=== PATIENT | female | born 2000 | race African-American/Black ===

== ENCOUNTER 2019-02-15 05:59 | Emergency (ER) | payer OTHER, MEDICAID, SELFPAY ==
[2019-02-15 06:06] VITALS: BP 140/72; PULSE 113; RESP 19; O2SAT 97; BMI 32.4
--- NOTE | 2019-02-15 06:16 | DI.US.S_ITS ---
PROCEDURE: US ABDOMEN LIMITED INDICATIONS: RUQ pain eval for GB pathology TECHNIQUE: Real-time scanning was performed of the abdominal and retroperitoneal organs, with image documentation. COMPARISON: None. FINDINGS: Liver: Liver is normal in size and homogeneous in echotexture. Gallbladder: Sludge material is seen in the dependent portion of gallbladder lumen. No gallbladder wall thickening or pericholecystic fluid. No sonographic Catalan's sign. Biliary ducts: Intrahepatic bile ducts are non-dilated. Extrahepatic bile duct caliber measures 3 mm. Normal is 6-7 mm or less in diameter, or 10 mm or less post-cholecystectomy. Pancreas: Visualized portions of the pancreas are sonographically normal. Kidneys: Right kidney measures 12.4 cm in length. Mild prominence of right renal collecting system and right renal pelvis is seen. No discrete obstructing renal stone is seen. No gross solid appearing renal lesion. Miscellaneous: No free abdominal fluid. Examination of the urinary bladder shows presence of bilateral urinary jets. Intrauterine gestation is noted with heart rate measures 147 beats per minute. IMPRESSION: 1. Suggestion of sludge material within gallbladder lumen. No evidence of acute cholecystitis. No biliary ductal dilatation. 2. Mild right-sided hydronephrosis likely related to . Dictated by: Home Cook M.D. on 02/15/2019 at 8:36 Approved by: Home Cook M.D. on 02/15/2019 at 8:39
--- NOTE | 2019-02-15 06:19 | ED_ITS ---
HPI - Chest Pain <DO Elijah Cano Last Filed: 02/15/19 18:01> General Chief Complaint: Chest Pain Stated Complaint: chest pain/rt abd pain/23 weeks Time Seen by Provider: 02/15/19 06:01 Source: patient Mode of arrival: Ambulatory Limitations: no limitations History of Present Illness HPI narrative: Patient is a at 23 weeks here for evaluation of bilateral chest discomfort and right upper quadrant abdominal pain. She states the right upper quadrant abdominal pain has been going on since last evening the chest pain has been going on for the past several hours. Has had some abdominal pain in this prior to this and has been evaluated for appendicitis however she feels like this pain is unrelated to that. No nausea vomiting. No fevers. No coughing. States that the chest pain is sharp and it is bilateral. Worse with deep breaths. Not worse with palpation or movement. Related Data Allergies Allergy/AdvReac Type Severity Reaction Status Date / Time No Known Drug Allergies Allergy Verified 02/15/19 06:06 Review of Systems <DO Elijah Cano Last Filed: 02/15/19 18:01> Constitutional Constitutional: Denies chills, Denies fever(s), Denies headache(s) and Denies malaise ENT Ears, Nose, Mouth, and Throat: Denies headache(s) Cardiovascular Cardiovascular: Reports chest pain, Denies irregular heart rhythm and Denies dyspnea Respiratory Respiratory: Reports pain on inspiration and Denies dyspnea Gastrointestinal Gastrointestinal: Reports abdominal pain, Denies change in stool character, Denies nausea and Denies vomiting Genitourinary Genitourinary: Denies dysuria Musculoskeletal Musculoskeletal: Denies myalgias and Denies arthralgias Integumentary/Breasts Skin/Breast: Denies lesions and Denies rash Neurologic Neurologic: Denies behavioral changes and Denies headache(s) Psychiatric Psychiatric: Denies behavioral changes Hematologic/Lymphatic Hematologic/Lymphatic: Denies easy bleeding and Denies easy bruising Patient History <DO Elijah Cano Filed: 02/15/19 18:01> Medical History Healthy adult (Acute) Social History Smoking Status: Never smoker Substance Use Type: does not use Exam <DO Elijah Cano Filed: 02/15/19 18:01> Initial Vital Signs Initial Vital Signs: Vital Signs Pulse Rate 113 H 02/15/19 06:06 Respiratory Rate 19 02/15/19 06:06 Blood Pressure 140/72 02/15/19 06:06 Pulse Oximetry 97 02/15/19 06:06 Const General: cooperative and comfortable Orientation: alert, awake and oriented x3 HENMT Head: normal to inspection and normocephalic Resp Effort & Inspection: normal respiratory effort Auscultation: clear to auscultation bilaterally Cardio Rate: regular rate Rhythm: regular rhythm Pulses: radial pulses present GI Inspection: non-distended Palpation: soft, No firm and tender (Right upper quadrant) Back/Spine/Pelvis Back: No CVA tenderness Skin Lesions: no lesions Rashes: no rashes Neuro General: alert, awake and oriented x3 Extrem General: normal to inspection and capillary refill normal <Desi Cates DO - Last Filed: 02/15/19 07:59> Initial Vital Signs Initial Vital Signs: Vital Signs Pulse Rate 113 H 02/15/19 06:06 Respiratory Rate 19 02/15/19 06:06 Blood Pressure 140/72 02/15/19 06:06 Pulse Oximetry 97 02/15/19 06:06 Course <Vickey LeivaDO jennifer - Last Filed: 02/15/19 18:01> Orders Ordered: ED Orders 02/15/19 06:08 EKG-12 Lead Stat 02/15/19 06:15 Complete Blood Count AUTO DIFF Stat Comprehensive Metabolic Panel Stat Lipase Stat Troponin I Stat 02/15/19 06:16 US abdomen limited Stat Vital Signs Vital signs: Vital Signs - 8 hr 02/15/19 06:06 02/15/19 07:32 02/15/19 07:56 Temperature 97.5 F L Pulse Rate 113 H 67 Respiratory Rate 19 18 Blood Pressure 140/72 Blood Pressure [Right Arm] 109/56 L Pulse Oximetry 97 99 <Desi Cates DO - Last Filed: 02/15/19 07:59> Orders Ordered: ED Orders 02/15/19 06:08 EKG-12 Lead Stat 02/15/19 06:15 Complete Blood Count AUTO DIFF Stat Comprehensive Metabolic Panel Stat Lipase Stat Troponin I Stat 02/15/19 06:16 US abdomen limited Stat Vital Signs Vital signs: Vital Signs - 8 hr 02/15/19 06:06 02/15/19 07:32 02/15/19 07:56 Temperature 97.5 F L Pulse Rate 113 H 67 Respiratory Rate 19 18 Blood Pressure 140/72 Blood Pressure [Right Arm] 109/56 L Pulse Oximetry 97 99 MDM - Chest Pain <Vickey MedinaDO - Last Filed: 02/15/19 18:01> Lab Data Attestation: I reviewed the patient's lab results. Result diagrams: 02/15/19 06:15 02/15/19 06:15 Labs: Lab Results 02/15/19 02/15/19 Range/Units 06:15 06:15 WBC 13.0 H (4.5-11.0) X10^3/uL RBC 4.28 (4.0-5.2) X10^6/uL Hgb 9.3 L (12.0-16.0) g/dL Hct 28.0 L (36-46) % MCV 65.5 L (80-100) fL MCH 21.6 L (26-34) PG MCHC 33.0 (30-36) % RDW 17.0 H (11.6-14.8) % Plt Count 248 (150-400) X10^3/uL Neut % (Auto) 72.7 (50-75) % Lymph % (Auto) 19.5 L (25-40) % [place] % (Auto) 6.4 (3-14) % Eos % (Auto) 1.1 L (2-4) % Baso % (Auto) 0.3 (0-2) % Neut # (Auto) 9400 H (6738-3782) /uL Lymph # (Auto) 2500 (0303-8593) /uL [facility] # (Auto) 800 (0-900) /uL Eos # (Auto) 100 (0-450) /uL Baso # (Auto) 0 (0-100) /uL RBC Morphology Not Reportable Anisocytosis 1+ H Sodium 135 L (137-145) mmol/L Potassium 3.7 (3.4-5.1) mmol/L Chloride 105 (98-107) mmol/L Carbon Dioxide 23 (22-32) mmol/L BUN 6 L (7-17) mg/dL Creatinine 0.60 (0.52-1.04) mg/dL Estimated GFR > 60.0 (>60) mL/min BUN/Creatinine Ratio 10.0 (6-22) Glucose 94 (70-100) mg/dL Calcium 9.2 (8.4-10.2) mg/dL Total Bilirubin 0.2 (0.2-1.3) mg/dL AST 18 (14-36) IU/L ALT 9 (<35) IU/L Alkaline Phosphatase 73 (38-126) U/L Troponin I < 0.012 (0.01-0.034) ng/mL Total Protein 6.9 (6.3-8.2) g/dL Albumin 3.8 (3.5-5.0) g/dL Globulin 3.1 (1.7-4.1) g/dL Albumin/Globulin Ratio 1.2 (1.0-2.8) Lipase 113 (23-300) U/L Urine Dip Bedside Urine Glucose Negative Bedside Urine Bilirubin - Negative Bedside Urine Ketone - Negative Urine Specific [place] 1.010 Bedside Urine Occult Blood - Negative Bedside Urine pH 6.0 Bedside Urine Protein - Negative Bedside Urine Urobilinogen - Negative Bedside Urine Nitrite - Negative Bedside Urine Leukocytes - Negative Esterase ECG Data Attestation: I personally reviewed and interpreted this ECG as follows: Prior ECG tracings: not available for review Interpretation: Sinus rhythm Ventricular rate 87 Normal axis Normal QRS Normal QTC No ST T wave changes MDM Narrative Medical decision making narrative: Triage vital signs as the patient tachycardic however EKG and monitor after that has her heart rate in the 80s. Patient's ri ght upper quadrant abdominal pain is somewhat concerned that with gallbladder disease. Labs ordered. Ultrasound was ordered. She has had multiple visits to ERs during this for abdominal pain. I do have low suspicion for pulmonary embolism. I also have low suspicion for pneumonia Will hold on any radiologic studies for now. Patient does have a leukocytosis however she states that she has had leukocytosis prior in this . States that 2 weeks ago she was treated with antibiotics by her primary doctor without a definitive source of the leukocytosis. She has no vaginal bleeding. Does have dysuria symptoms. Labs pending. Care turned over to day provider change of shift follow up on labs, radiologic studies and ultimate disposition for <Desi Ctaes DO - Last Filed: 02/15/19 07:59> Lab Data Attestation: I reviewed the patient's lab results. Labs: Lab Results 02/15/19 02/15/19 Range/Units 06:15 06:15 WBC 13.0 H (4.5-11.0) X10^3/uL RBC 4.28 (4.0-5.2) X10^6/uL Hgb 9.3 L (12.0-16.0) g/dL Hct 28.0 L (36-46) % MCV 65.5 L (80-100) fL MCH 21.6 L (26-34) PG MCHC 33.0 (30-36) % RDW 17.0 H (11.6-14.8) % Plt Count 248 (150-400) X10^3/uL Neut % (Auto) 72.7 (50-75) % Lymph % (Auto) 19.5 L (25-40) % [facility] % (Auto) 6.4 (3-14) % Eos % (Auto) 1.1 L (2-4) % Baso % (Auto) 0.3 (0-2) % Neut # (Auto) 9400 H (9379-1308) /uL Lymph # (Auto) 2500 (1123-8368) /uL [facility] # (Auto) 800 (0-900) /uL Eos # (Auto) 100 (0-450) /uL Baso # (Auto) 0 (0-100) /uL RBC Morphology Not Reportable Anisocytosis 1+ H Sodium 135 L (137-145) mmol/L Potassium 3.7 (3.4-5.1) mmol/L Chloride 105 (98-107) mmol/L Carbon Dioxide 23 (22-32) mmol/L BUN 6 L (7-17) mg/dL Creatinine 0.60 (0.52-1.04) mg/dL Estimated GFR > 60.0 (>60) mL/min BUN/Creatinine Ratio 10.0 (6-22) Glucose 94 (70-100) mg/dL Calcium 9.2 (8.4-10.2) mg/dL Total Bilirubin 0.2 (0.2-1.3) mg/dL AST 18 (14-36) IU/L ALT 9 (<35) IU/L Alkaline Phosphatase 73 (38-126) U/L Troponin I < 0.012 (0.01-0.034) ng/mL Total Protein 6.9 (6.3-8.2) g/dL Albumin 3.8 (3.5-5.0) g/dL Globulin 3.1 (1.7-4.1) g/dL Albumin/Globulin Ratio 1.2 (1.0-2.8) Lipase 113 (23-300) U/L Urine Dip Bedside Urine Glucose Negative Bedside Urine Bilirubin - Negative Bedside Urine Ketone - Negative Urine Specific [place] 1.010 Bedside Urine Occult Blood - Negative Bedside Urine pH 6.0 Bedside Urine Protein - Negative Bedside Urine Urobilinogen - Negative Bedside Urine Nitrite - Negative Bedside Urine Leukocytes - Negative Esterase Imaging Data US - abdomen: Radiologist's impression: Preliminary report: Gravid uterus. Mild right hydronephrosis ureteral jets are parent. Otherwise unremarkable right upper qu adrant ultrasound [facility] Narrative Medical decision making narrative: Patient signed out to me by Dr. Medina. I have seen evaluated patient myself. She has minimal tenderness right upper quadrant she is noted to be anemic with mild leukocytosis. She is not taking iron supplements at this time. Dr. Truong recommended iron every other day. Leukocytosis can be normal in at this time is based on exam and presentation I do not believe any further imaging to be indicated at this time. Discharge Plan Departure Patient Disposition: Home Clinical Impression: Anemia affecting in second trimester Discharge Date/Time: 02/15/19 07:57 Instructions: DI for -- Discomforts and Remedies, Anemia in Activity Restrictions/Additional Instructions: *You have been diagnosed with anemia in and abdominal discomfort in *What to do: At this time no cause of his abdominal discomfort, this is likely related to changes in her body and . It is noted that you are to be anemic, meaning low blood counts. *Continue to take medications as directed Iron 1 tablet every other day recommend Monday *Follow up with your primary care provider in 2-3 days Please follow-up with your OBGYN in [place] *Return to ER if you should have increased abdominal pain, weakness, shortness of breath chest pain or any new, worsening or concerning symptoms
[2019-02-15 06:29] LABS: Add Manual Diff / Slide Review NO; Basophils Absolute Auto 0 /uL (0-100); Basophils Percent Auto 0.3 % (0-2); Eosinophils Absolute Auto 100 /uL (0-450); Eosinophils Percent Auto 1.1 % (2-4); Hemoglobin 9.3 g/dL (12.0-16.0); Lymphocytes Absolute Auto 2500 /uL (1100-4500); Lymphocytes Percent Auto 19.5 % (25-40); Mean Corpuscular Hemoglobin 21.6 PG (26-34); Mean Corpuscular Volume 65.5 fL (80-100); Monocytes Absolute Auto 800 /uL (0-900); Monocytes Percent Auto 6.4 % (3-14); Neutrophils Absolute Auto 9400 /uL (1500-7000); Neutrophils Percent Auto 72.7 % (50-75); Platelet Count 248 X10^3/uL (150-400); Red Blood Cell Count 4.28 X10^6/uL (4.0-5.2)
[2019-02-15 06:39] LABS: Alanine Aminotransferase 9 IU/L (<35); Albumin 3.8 g/dL (3.5-5.0); Albumin Globulin Ratio 1.2 (1.0-2.8); Alkaline Phosphatase 73 U/L (38-126); Aspartate Aminotransferase 18 IU/L (14-36); Bilirubin Total 0.2 mg/dL (0.2-1.3); Blood Urea Nitrogen 6 mg/dL (7-17); Calcium 9.2 mg/dL (8.4-10.2); Carbon Dioxide 23 mmol/L (22-32); Chloride 105 mmol/L (98-107); Estimated Glomerular Filt Rate > 60.0 mL/min (>60); Globulin 3.1 g/dL (1.7-4.1); Glucose 94 mg/dL (70-100); HEMOLYSIS < 15 (0-50); Lipase 113 U/L (23-300); Potassium 3.7 mmol/L (3.4-5.1); Sodium 135 mmol/L (137-145); Total Protein 6.9 g/dL (6.3-8.2)
--- NOTE | 2019-02-15 06:40 | PC.NURSE ---
PT states onset of bilateral chest discomfort and right upper quadrant abdominal pain at 0300. Pt states she is 23 weeks and has been evaluated at [facility] recently for similar abdominal symptoms and states was told she had a stomach virus. Pt denies vaginal bleeding.
[2019-02-15 06:50] LABS: Troponin I < 0.012 ng/mL (0.01-0.034)
[2019-02-15 07:05] LABS: Anisocytosis 1+
[2019-02-15 07:32] VITALS: BP 109/56
[2019-02-15 07:56] VITALS: PULSE 67; RESP 18; TEMP 36.4; O2SAT 99
== END 2019-02-15 07:57 | disposition home or self-care (01) ==
PROVIDERS: Emergency Medicine; Emergency Provider Emergency Medicine
DX: O99.012 Anemia complicating pregnancy, second trimester (principal); R07.9 Chest pain, unspecified; R10.11 Right upper quadrant pain; Z3A.23 23 weeks gestation of pregnancy
CPT/HCPCS: 36415; 76705; 80053; 81003; 83690; 84484; 85025; 93005; 99283; 99285